=== PATIENT | male | born 1985 | race Caucasian/White ===

== ENCOUNTER 2022-05-06 23:40 | Emergency (ER) | payer OTHER ==
--- NOTE | 2022-05-06 23:45 | ED Physician Documentation ---
History of Present Illness - Stated complaint Stated Complaint: C+,UNABLE TO EAT - History obtained from History obtained from: Patient - History of Present Illness Timing: How many days ago (3) Pain level now: 1 Improved by: no ameliorating factors Worsened by: PO intake - Additonal information Additional information: c/o nausea, vomiting x 3 days. Mild, intermittent upper abdominal cramping pain but pain-free between such episodes (which last several minutes and are associated with episodes of emesis). Denies fever, denies h/o similar symptoms. Went to walk-in clinic for these symptoms and was prescribed zofran but this is not providing adequate relief and he has not been able to tolerate any PO, including sips of liquids, all day today Review of Systems Constitutional: reports: Reviewed and negative Cardiac: reports: Reviewed and negative Respiratory: reports: Reviewed and negative GI: reports: Abdominal Pain, Nausea, Vomiting. denies: Abdominal Swelling, Constipation, Diarrhea, Hematemesis, Bloody / black stool Musculoskeletal: denies: Back pain PD PAST MEDICAL HISTORY - Past Medical History Past Medical History: Yes Other Past Medical History: hepatitis C - Present Medications Home Medications: Ambulatory Orders Medication Instructions Recorded Confirmed Promethazine [Phenergan] 25 mg PO Q6H PRN #14 tab 05/07/22 Propranolol HCl 20 mg PO BID 05/07/22 05/07/22 Sertraline HCl [Zoloft] 50 mg PO DAILY 05/07/22 05/07/22 - Allergies Allergies/Adverse Reactions: Allergies Allergy/AdvReac Type Severity Reaction Status Date / Time No Known Drug Allergies Allergy Verified 05/06/22 23:48 - Social History Does the pt have substance abuse?: No Additional Social History: h/o heroin use (he is currently taking suboxone), last use was several years ago PD ED PE NORMAL - Vitals Vital signs reviewed: Yes - General General: Alert and oriented X 3, No acute distress, Well developed/nourished - HEENT HEENT: No: Moist mucous membranes (pasty mucous membranes) - Neck Neck: Supple, no meningeal sign - Cardiac Cardiac: RRR, No murmur - Respiratory Respiratory: No respiratory distress, Clear bilaterally - Abdomen Abdomen: Normal bowel sounds, Soft, Non tender, Non distended - Derm Derm: Normal color, Warm and dry Results - Vitals Vitals: Oxygen O2 Source Room air - Labs Labs: Laboratory Tests 05/07/22 05/07/22 00:32 00:32 WBC 4.4 L RBC 5.40 Hgb 16.5 Hct 48.2 MCV 89.3 MCH 30.6 MCHC 34.2 RDW 12.1 Plt Count 207 MPV 9.7 Neut # (Auto) 2.5 Lymph # (Auto) 1.2 L Hopkins # (Auto) 0.6 Eos # (Auto) 0.0 Baso # (Auto) 0.0 Absolute Nucleated RBC 0.00 Nucleated RBC % 0.0 Sodium 136 Potassium 4.1 Chloride 96 L Carbon Dioxide 28 Anion Gap 12.0 BUN 20 Creatinine 0.8 Estimated GFR (MDRD) 111 Glucose 117 H Calcium 8.9 Total Bilirubin 1.3 H AST 71 H ALT 108 H Alkaline Phosphatase 61 Total Protein 8.5 H Albumin 4.2 Globulin 4.3 H Albumin/Globulin Ratio 1.0 Lipase 24 PD MEDICAL DECISION MAKING - ED course Complexity details: reviewed results, re-evaluated patient, considered differential, d/w patient ED course: Given one liter IV NS and 25 mg phenergan. On reevaluation, he is in NAD, reports felling much better. He has moist mucous membranes and has tolerated PO challenge. Results reviewed with patient, noting very mild leukopenia and mildly abnormal LFTs (mildly elevated bilirubin, AST, ALT; he says he had been diagnosed with hepatitis C and recalls having abnormal liver tests before). None of the blood test results is/are alarming or emergently concerning. He is advised to follow up with primary care provider, and an rx for phenergan is provided. Departure - Departure Disposition: 01 Home, Self Care Clinical Impression: Vomiting Condition: Good Instructions: ED Nausea Vomiting Follow-Up: Felicia Jones NP [Primary Care Provider] - Prescriptions: Promethazine [Phenergan] 25 mg PO Q6H PRN #14 tab PRN Reason: Nausea / Vomiting Comments: There were no concerning findings on tonight's tests. As we discussed, you had very mildly elevated liver function tests; you can follow up with your primary care provider regarding this finding. A prescription for phenergan (the antinausea medication given to you in the ER) has been electronically submitted to [facility] in [place]. You can take this if the ondansetron is not controlling the nausea/vomiting (alternatively, if you take the phenergan first but it is not adequately controlling the nausea/vomiting, you can then take a dose of the ondansetron). Discharge Date/Time: 05/07/22 02:35
[2022-05-07] MEDS ORDERED: SODIUM CHLORIDE 0.9% 1,000 ML IV STA (00:17)
[2022-05-07] MEDS ORDERED: PROMETHAZINE INJ 25 MG in SODIUM CHLORIDE 0.9% 50 ML IV STA (00:17)
[2022-05-07] MEDS ORDERED: PROMETHAZINE 25 MG/1 ML VIAL ONE (00:23)
[2022-05-07 00:36] LABS: BASOPHILS % (AUTO) 0.2 %; EOSINOPHILS % (AUTO) 0.2 %; HCT - HEMATOCRIT 48.2 % (42.0-52.0); HGB - HEMOGLOBIN 16.5 g/dL (14.0-18.0); LYMPHOCYTES # (AUTO) 1.2 10^3/uL (1.5-3.5); LYMPHOCYTES % (AUTO) 27.5 %; MEAN CORPUSCULAR HEMOGLOBIN 30.6 pg (27.0-31.0); MEAN CORPUSCULAR HGB CONC 34.2 g/dL (32.0-36.0); MEAN CORPUSCULAR VOLUME 89.3 fL (80.0-94.0); MEAN PLATELET VOLUME 9.7 fL (7.4-11.4); MONOCYTES # (AUTO) 0.6 10^3/uL (0.0-1.0); MONOCYTES % (AUTO) 13.5 %; NEUTROPHILS # (AUTO) 2.5 10^3/uL (1.5-6.6); NEUTROPHILS % (AUTO) 58.4 %; PLT - PLATELET COUNT 207 10^3/uL (130-450); RED CELL DISTRIBUTION WIDTH 12.1 % (12.0-15.0); WHITE BLOOD COUNT 4.4 x10^3/uL (4.8-10.8)
[2022-05-07 00:49] LABS: ALBUMIN 4.2 g/dL (3.2-5.5); BILIRUBIN,TOTAL 1.3 mg/dL (0.2-1.0); CALCIUM 8.9 mg/dL (8.5-10.3); CREATININE 0.8 mg/dL (0.6-1.2); POTASSIUM 4.1 mmol/L (3.5-5.0); TOTAL PROTEIN 8.5 g/dL (6.7-8.2)
[2022-05-07 02:15] VITALS: BP 122/80
== END 2022-05-07 02:35 | disposition home or self-care (01) ==
LOC: ED 23:40
DX: R11.2 Nausea with vomiting, unspecified (principal)
CPT/HCPCS: 36415; 80053; 83690; 85025; 96365; 99284; J7040